=== PATIENT | female | born 1955 | race Caucasian/White ===

== ENCOUNTER → 2017-08-08 | Outpatient (CLI) | payer OTHER ==
[~2017-08-08] MED LIST: Cephalexin500 MG PO; HYDROCODONE1 TABLET PO
--- NOTE | 2017-08-08 09:22 | RADIOLOGY REPORT PS360 ---
CT SINUS (MAX-FACIAL W/O CONT) CLINICAL INDICATION: LT FACIAL NUMBNESS, TRAUMATIC ECCHYMOSIS LT ORBIT ORDERING PHYSICIAN: Rene Mak MD PATIENT AGE: 61 years COMPARISON: None TECHNIQUE:Axial, sagittal, and coronal images are generated and reviewed without contrast COMPARISON: None FINDINGS:No fracture or dislocation. Moderate mucosal thickening involves the floor of the right maxillary sinus with a small amount fluid in the right maxillary sinus. The right ostomy or complex is slightly narrowed from mucous and/or edema. Left OMC is patent. There is mild leftward nasal septal deviation superiorly. The orbits have an unremarkable appearance. The TMJs are unremarkable. Minimal amount fluid in right mastoid air cells. IMPRESSION: 1. Right maxillary sinus disease. 2. Minimal amount fluid in right mastoid sinus. 3. Otherwise negative maxillofacial CT
== END ==
LOC: RAD 08:01
DX: S05.12XA Contusion of eyeball and orbital tissues, left eye, initial encounter (principal); R20.0 Anesthesia of skin